=== PATIENT | female | born 1950 | race Caucasian/White ===

== ENCOUNTER 2019-12-30 05:00 | Observation (INO) ==
--- NOTE | 2019-12-26 10:44 | Anesthesiology Consultation ---
Date of Service December 26, 2019 Assessment & Plan (1) Encounter for pre-operative examination: - Check BSG AM DOS Chart Review Chart Review: Acceptable Risk for Surgery and Patient NOT seen in Pre Admission Testing History Surgery Operation Date: 12/30/19 08:50 Proposed Procedures p Ventral Hernia Repair - Justo Meier MD Height/Weight Height: 5 ft 2 in Weight: 81.647 kg Allergies Allergy/AdvReac Type Severity Reaction Status Date / Time No Known Allergies Allergy Verified 12/26/19 09:20 Medications Home Medications Medication Instructions Recorded Confirmed Last Taken aspirin [Aspirin Low Dose] 81 mg PO QAM 12/26/19 12/26/19 Unknown calcium carbonate-vitamin D3 1 tab PO QAM 12/26/19 12/26/19 Unknown [Caltrate 600 plus D] cyanocobalamin (vitamin B-12) 2,000 mcg PO QPM 12/26/19 12/26/19 Unknown [Vitamin B-12] famotidine [Pepcid AC] 10 mg PO DAILY PRN 12/26/19 12/26/19 Unknown hydrochlorothiazide 12.5 mg PO QAM 12/26/19 12/26/19 Unknown lisinopril 40 mg PO QAM 12/26/19 12/26/19 Unknown loperamide 2 mg PO Q3H PRN 12/26/19 12/26/19 Unknown metformin 850 mg PO TIDM 12/26/19 12/26/19 Unknown utrbxdok-qxc-rums-FA-lutein 1 tab PO QAM 12/26/19 12/26/19 Unknown [Centrum Silver Women] nateglinide [Starlix] 120 mg PO TIDM 12/26/19 12/26/19 Unknown pravastatin 80 mg PO HS 12/26/19 12/26/19 Unknown Past Medical History Medical History Diabetes mellitus, type 2 NIDDM History of basal cell cancer Hypertension Osteoarthritis Sleep apnea no further details per RN phone interview, ?device Past Surgical History Surgical History History of partial hysterectomy Hx laparoscopic cholecystectomy Hx of colonoscopy Hx of rotator cuff surgery RIGHT Hx of tonsillectomy Social History Smoking Status: Never smoker Do You Dip or Chew Tobacco: No Hx Alcohol Use: No Hx Substance Use: No Testing Laboratory Results 12/20/19 WBC 8.21 H/H 12.9/40.5 PLATELETS 164 SODIUM 141 POTASSIUM 4.1 CHLORIDE 102 CO2 24 BUN 15 CREATININE 0.6 GLUCOSE 149 Electrocardiogram Date: 12/20/19 NSR at 76bpm. RBBB.
[2019-12-30] MEDS ORDERED: LR 15ML/HR IV SCH (06:00)
[2019-12-30] MEDS ORDERED: CEFAZOLIN 2000MG 2,000 MG/15 ML SYR IV SCH (06:00)
--- NOTE | 2019-12-30 06:35 | History & Physical Bridge Note ---
Date of Service December 30, 2019 History & Physical Bridge Note I have examined the patient, reviewed the History & Physical and in the interval since the performance of the History & Physical I have noted the following changes of clinical significance: no changes noted
[2019-12-30] MEDS ORDERED: ACETAMINOPHEN 1000 MG/100 ML IV IV ONE (06:39)
[2019-12-30] MEDS ORDERED: ONDANSETRON INJ 2 MG/ML 2 ML VIAL ONE ×2 (06:40→09:20)
[2019-12-30] MEDS ORDERED: LARYING-O-JET KIT (LTA) ONE (06:40)
[2019-12-30] MEDS ORDERED: PROPOFOL IV EMULSION 10 MG/ML 20 ML VIAL IV ONE (06:40)
[2019-12-30] MEDS ORDERED: LIDOCAINE HCL 2% 2 ML VIAL/AMP(20MG/ML) INFIL ONE (06:40)
[2019-12-30] MEDS ORDERED: fentaNYL citrate 100 MCG/2 ML VIAL ONE (06:40)
[2019-12-30] MEDS ORDERED: BUPIVACAINE 0.5 % 5 MG/1 ML MPF 30ML VIAL ONE (06:46)
[2019-12-30] MEDS ORDERED: LIDOCAINE HCL 1% 20 ML VIAL ONE (06:46)
[2019-12-30] MEDS ORDERED: CEFAZOLIN 250 MG/ML 1 GM VIAL ONE (06:52)
[2019-12-30] MEDS ORDERED: PROMETHAZINE HCL 6.25 MG in SODIUM CHLORIDE 0.9% 50 ML IV PRN (06:53)
[2019-12-30] MEDS ORDERED: ATROPINE SULFATE 0.1 MG/ML 10ML SYR IV PRN (06:53)
[2019-12-30] MEDS ORDERED: ONDANSETRON INJ 2 MG/ML 2 ML VIAL IV PRN ×2 (06:53→11:06)
[2019-12-30] MEDS ORDERED: fentaNYL citrate 100 MCG/2 ML VIAL IV PRN (06:53)
[2019-12-30] MEDS ORDERED: ePHEDrine sulfate 50 MG/ML AMP IV PRN (06:53)
[2019-12-30] MEDS ORDERED: PHENYLEPHRINE 100MCG/ML 5ML SYR ONE (07:21)
[2019-12-30] MEDS ORDERED: HYDROmorphone INJ 2 MG/ML SYR/VIAL ONE (07:45)
[2019-12-30] MEDS ORDERED: SODIUM CHLORIDE 0.9% INJ 10 ML VIAL ONE (07:49)
[2019-12-30] MEDS ORDERED: ePHEDrine sulfate 50 MG/ML SYR ONE (09:01)
--- NOTE | 2019-12-30 09:50 | Post Operative Brief Note ---
Immediate Post Op Note v1 Date of Surgery December 30, 2019 Pre & Post Diagnosis Operation Date: 12/30/19 07:00 Pre-Op Diagnosis: Ventral Hernia without obstruction Post-Op Diagnosis: Ventral Hernia without obstruction I identified the patient and participated in the time-out.: Yes Procedure Operation Date: 12/30/19 07:00 Actual Procedures p Ventral Hernia Repair(Not Applicable) - Justo Meier MD Surgeon Justo Meier MD Right Of Way Manager None Estimated Blood Loss 25 Findings Consistent with Post-Op Diagnosis Drains Alaniz Catheter and Rick-Patton Drain (10flat, subcutaneous space) Anesthesia Type General
[2019-12-30] MEDS ORDERED: NEOSTIGMINE METHYLSULFATE 5 MG/5 ML SYR ONE (10:00)
[2019-12-30] MEDS ORDERED: GLYCOPYRROLATE 0.2 MG/ML VIAL ONE (10:00)
--- NOTE | 2019-12-30 10:34 | Anesthesiology Progress Note ---
Date of Service December 30, 2019 Anesthesia Post Procedure Vital Signs Vital Signs: Temp Pulse Pulse Resp BP Pulse Ox 12/30/19 10:30 91 H 14 179/71 H 93 12/30/19 10:20 92 H 12 175/66 H 94 12/30/19 10:10 101 H 14 194/90 H 95 12/30/19 10:00 88 13 151/63 H 93 12/30/19 09:53 36.2 C L 100 H 14 164/98 H 96 12/30/19 05:48 37.4 C 86 18 174/79 H 96 Pain Intensity Abdomen: Pain Intensity: 0 Transfer of Care Handoff Completed per policy Notes Mental Status: alert / awake / arousable Patient Amnestic to Procedure: Yes Nausea / Vomiting: adequately controlled Pain: adequately controlled Airway Patency, RR, SpO2: stable & adequate BP & HR: stable & adequate Hydration State: stable & adequate Anesthetic Complications: no major complications apparent
[2019-12-30] MEDS ORDERED: SODIUM CHLORIDE 0.9% 1000ML 1,000 ML IV SCH (11:06)
[2019-12-30] MEDS ORDERED: FAMOTIDINE 10 MG TABLET PO PRN (11:06)
[2019-12-30] MEDS ORDERED: MoRPHine SULFATE 4 MG/ML 1 ML CARP\\VIAL IV PRN (11:06)
[2019-12-30] MEDS ORDERED: LOPERAMIDE HCL 2 MG CAP PO PRN (11:06)
[2019-12-30] MEDS ORDERED: PHARMACY GLYCEMIC MGMT CONSULT PRN (11:44)
--- NOTE | 2019-12-30 11:56 | Pharmacy Report ---
Glycemic Control Consultation - Date of Service December 30, 2019 - Scope Scope: Glycemic Pharmacist consulted by Dr Meier on 12/30/2019 for glycemic control and to write orders per [facility] inpatient glycemic control protocol - Objective Weight: 84.3 kg Accuchecks BSG (last 24hrs): 12/30/19 12/30/19 05:37 09:57 POC Glucose 177 H 207 H - Recent Pertinent Medications Outpatient Anti-diabetic Regimen: * metformin 850 mg PO TID plus Starlix 120 mg PO TID. Risk Factors for Insulin Resistance: * Recent Surgery: POD 0 for hernia surgery * Diet: T2DM - Assessment & Plan Assessment & Plan: ASSESSMENT: * Ms Escobedo is a 69 y/o F on 2 anti-diabetic medications who presents for hernia surgery. BSG on presentation was 177 mg/dL. Received no steroids. * Utilize 0.2 units/kg of Lantus for one time dose. Utilize slightly tighter than weight-based stress of 2 for Novolog. * Ordered HbA1C. * Pt is maintained on oral antidiabetic agents as an outpatient * Oral agents are not recommended for inpatient use d/t drug interactions, changing PO intake, and difficulty titrating for acute hyper/hypoglycemia. ADA recommends re-initiating outpatient oral agents 1-2 days prior to discharge if/when appropriate if they were held on admission. * Will hold oral agents for admission and utilize SQ basal bolus insulin regimen which is the recommended regimen for inpatient glycemic control. * Will initiate weight based insulin dosing for insulin sania patient and titrate based on BSG trends. PLAN FOR INPATIENT GLYCEMIC CONTROL: * Holding outpatient oral diabetes medications * Basal insulin * Lantus 20 units SQ x 1 * Bolus insulin * NovoLog per scale ACHS or Q6hrs while NPO * Goal Range: Low 110 mg/dL - High 140 mg/dL * Correction Factor: 25 mg/dL/unit * Nutritional / Prandial insulin per carb ratio of 1 unit per 8 grams CHO consumed * Please note that the plan above was derived based on current level of insulin resistance and hospital stress. These recommendations are appropriate for inpatient admission only. Plan of care upon discharge will need to be reassessed to avoid potential outpatient hypo/hyperglycemia. Thank you.
[2019-12-30] MEDS ORDERED: DEXTROSE 50% 50 ML SYRINGE IV PRN (12:00)
[2019-12-30] MEDS ORDERED: GLUCAGON FOR INJ 1 MG VIAL IM PRN (12:00)
[2019-12-30] MEDS ORDERED: GLUCOSE 40% GEL 15 GM TUBE PO PRN (12:00)
[2019-12-30] MEDS ORDERED: METFORMIN HCL 850 MG TAB PO SCH (12:00)
[2019-12-30] MEDS ORDERED: CARBOHYDRATES FOR HYPOGLYCEMIA PO PRN (12:00)
[2019-12-30] MEDS ORDERED: NATEGLINIDE 120 MG PO SCH (12:00)
[2019-12-30] MEDS ORDERED: GLUCOSE 10 TABS/TUBE PO PRN (12:00)
[2019-12-30] MEDS ORDERED: LANTUS PER UNIT CHARGE SQ ONE (12:00)
[2019-12-30] MEDS: INSULIN ASPART 100 UNITS/ML 3 ML PEN SC SCH ×3 (12:36→21:06)
[2019-12-30] MEDS: PRAVASTATIN SOD 40 MG TAB PO SCH (20:58)
[2019-12-30] MEDS: CYANOCOBALAMIN 500 MCG TABLET (VITAMIN B-12) PO SCH (20:59)
[2019-12-30] MEDS: OXYCODONE/ACETAMINOPHEN 5mg/325mg TAB PO PRN (21:01)
--- NOTE | 2019-12-31 04:34 | Operative Report ---
DATE OF OPERATION: 12/30/2019 PREOPERATIVE DIAGNOSIS: Ventral hernia. POSTOPERATIVE DIAGNOSIS: Ventral hernia. PROCEDURE: Repair of ventral hernia. SURGEON: Justo Meier MD. CAT WAGON OPERATOR: Kenia Langston PA-C. FINDINGS: The patient had 2 ventral hernias with a skin bridge measuring about a centimeter between that was divided in order to create one hernia defect, which then measured 7 x 6 cm. The hernia sac measured 15 cm in diameter and contained a significant portion of the omentum as well as the transverse colon. These were adherent to the inner portion of the hernia sac. The colon appeared healthy. TECHNIQUE: The patient was given a general anesthetic and the area was prepped and draped in the usual sterile fashion. The hernia had been previously marked. Vertical incision was made through the scar from her previous incision. This had to be extended superiorly. It was carried down through the subcutaneous tissue until the hernia sac could be identified. The hernia sac was primarily to the right of the vertical midline defect. It had mushroomed and was adherent to the anterior surface of the fascia around the entire hernia defect, but primarily towards the right. This allowed me to then elevate the hernia sac on the left and dissect it away from the surrounding connective tissue using blunt cautery and sharp dissection where appropriate until I could identify the fascia. I then rolled the hernia sac off the anterior surface of the fascia until I was able to identify the edge of the fascial defect. I then dissected the hernia sac away from the overlying skin towards the right and then was able to roll that towards the left side and dissect significant connective tissue adhesion down towards the fascia. I then worked inferiorly and was able to dissect right down to the hernia sac itself. I was then able to establish bluntly a plane along the hernia sac towards the right side and divided those attachments using blunt and cautery dissection where appropriate, which allowed me then to completely roll the sac medially allowing me to identify the attachments to the anterior surface of the fascia on that side. These attachments were divided bluntly and with cautery until I was able to roll it over to the edge of the fascia there. I then had to work towards the superior side and it was at that point that I identified the second defect. I was able to establish a plane bluntly underneath the fascia between the 2 defects and opened that creating one defect. There was omentum up within the more superior smaller hernia sac and this was dissected away. I then opened the hernia sac and tried to reduce the omentum, but there were lobulations and small pockets to the sac. I had to open some of these in order to free the omentum. The colon was adherent in one area. This was dissected away without causing enterotomy or rent in the serosa. Once that was completely freed, I was then able to concentrate on dissecting the omentum away from the inner surface of the hernia sac, but that was accomplished until it was all completely freed. That required a significant amount of time with careful dissection. Once it was all freed, I was then able to reduce the colon and the omentum back into the abdominal cavity. I then worked towards the left side and depressed the peritoneum and was able to establish a preperitoneal space towards the left with ease. Once I got beyond the incision for about a centimeter, I was able to perform that bluntly and then worked inferiorly and superiorly. The right-sided dissection was a little more difficult as the peritoneum was much more thin. I then opened the posterior rectus sheath superiorly and peeled it down and worked superior to inferior till I reached the dissection of the peritoneum away inferiorly. That created a pocket anterior to the peritoneum for a distance of 5-6 cm around the entire circumference. I then used the hernia sac to close the peritoneum using a running 2-0 Vicryl locked sutures until it was completely freed. There was no bowel exposed. A 15 x 15 piece of mesh was then fashioned and placed in the preperitoneal retrofascial space. It was secured to the undersurface of the fascia using 0 PDS horizontal mattress sutures. The fascia was then closed in the midline with [id number] sutures of #1 PDS. The area was inspected for bleeding and none was seen. Because of the large size of the sac in the subcutaneous tissue, I felt that this was at risk for developing a seroma, so a separate stab incision was made towards the right side inferior to the incision through which a 10 mm flat Rick-Patton was brought. It was placed in the subcutaneous tissue and secured at the exit site of the skin with a 3-0 nylon. The skin was then closed with bhargav. The skin was anesthetized with 0.5% Marcaine. The estimated blood loss was 25 mL. Sponge, needle and instrument counts were correct prior to closure. A dressing was placed. The patient was transferred to recovery. I attest to the content of the Intraoperative Record and any orders documented therein. Any exception s are noted below.
[2019-12-31] MEDS: OXYCODONE/ACETAMINOPHEN 5mg/325mg TAB PO PRN ×3 (06:00→21:22)
--- NOTE | 2019-12-31 06:52 | Surgery Progress Note ---
Date of Service December 31, 2019 Assessment & Plan (1) Ventral hernia: Postoperative day #1 status post repair of ventral hernia Encouraged ambulation Encourage p.o. Continue pain management Social service evaluation for home nursing care Subjective Postoperative day 1 status post ventral hernia Having mild nausea Pain is relieved although requiring narcotic analgesics Sitting in chair Did not take p.o. well but did tolerate liquids MAHENDRA put out 150 cc of serosanguineous Physical Exam Gastrointestinal (Abdomen): Inspection/Auscultation: normal bowel sounds and + abdominal surgical incision (Small amount of drainage on the dressing); abdomen not distended Percussion/Palpation: abdomen soft; abdomen nontender Results & Data Vital Signs (Past 12 Hours) Vital Signs Temp Pulse Resp BP Pulse Ox 12/31/19 03:58 37.2 C 105 H 15 131/71 91 12/30/19 23:30 37.5 C 98 H 15 130/72 93 12/30/19 20:00 36.8 C 88 16 132/74 98
[2019-12-31 07:22] LABS: Estimated Average Glucose 180 mg/dl; Hemoglobin A1C 7.9 % (4.5-5.6)
--- NOTE | 2019-12-31 07:36 | Anesthesiology Progress Note ---
Date of Service December 31, 2019 Anesthesia Post Procedure Vital Signs Vital Signs: Temp Pulse Pulse Resp BP Pulse Ox 12/31/19 07:17 37 C 99 H 16 138/75 92 12/31/19 03:58 37.2 C 105 H 15 131/71 91 12/30/19 23:30 37.5 C 98 H 15 130/72 93 12/30/19 20:00 36.8 C 88 16 132/74 98 12/30/19 16:52 36.8 C 89 16 135/76 99 12/30/19 14:12 36.8 C 92 H 18 136/74 96 12/30/19 13:13 36.7 C 85 19 129/74 95 12/30/19 12:15 90 16 138/76 95 12/30/19 11:32 36.6 C 87 19 130/75 95 12/30/19 10:55 36.5 C 102 H 18 176/75 H 94 12/30/19 10:40 36.5 C 88 14 164/63 H 93 12/30/19 10:30 91 H 14 179/71 H 93 12/30/19 10:20 92 H 12 175/66 H 94 12/30/19 10:10 101 H 14 194/90 H 95 12/30/19 10:00 88 13 151/63 H 93 12/30/19 09:53 36.2 C L 100 H 14 164/98 H 96 Pain Intensity Abdomen: Pain Intensity: 2 Notes Mental Status: alert / awake / arousable and participated in evaluation Nausea / Vomiting: adequately controlled Pain: adequately controlled Airway Patency, RR, SpO2: stable & adequate BP & HR: stable & adequate Hydration State: stable & adequate Anesthetic Complications: Pt Satisfied with anesthetic care
--- NOTE | 2019-12-31 07:50 | Anesthesiology Progress Note ---
Date of Service December 31, 2019 Anesthesia Post Procedure Vital Signs Vital Signs: Temp Pulse Pulse Resp BP Pulse Ox 12/31/19 07:17 37 C 99 H 16 138/75 92 12/31/19 03:58 37.2 C 105 H 15 131/71 91 12/30/19 23:30 37.5 C 98 H 15 130/72 93 12/30/19 20:00 36.8 C 88 16 132/74 98 12/30/19 16:52 36.8 C 89 16 135/76 99 12/30/19 14:12 36.8 C 92 H 18 136/74 96 12/30/19 13:13 36.7 C 85 19 129/74 95 12/30/19 12:15 90 16 138/76 95 12/30/19 11:32 36.6 C 87 19 130/75 95 12/30/19 10:55 36.5 C 102 H 18 176/75 H 94 12/30/19 10:40 36.5 C 88 14 164/63 H 93 12/30/19 10:30 91 H 14 179/71 H 93 12/30/19 10:20 92 H 12 175/66 H 94 12/30/19 10:10 101 H 14 194/90 H 95 12/30/19 10:00 88 13 151/63 H 93 12/30/19 09:53 36.2 C L 100 H 14 164/98 H 96 Pain Intensity Abdomen: Pain Intensity: 2 Notes Mental Status: alert / awake / arousable and participated in evaluation Patient Amnestic to Procedure: Yes Nausea / Vomiting: adequately controlled Pain: adequately controlled Airway Patency, RR, SpO2: stable & adequate BP & HR: stable & adequate Hydration State: stable & adequate Anesthetic Complications: no major complications apparent and Pt Satisfied with anesthetic care
[2019-12-31] MEDS: CALCIUM 600MG + VIT D 400 IU TAB PO SCH (08:43)
[2019-12-31] MEDS: CEROVITE ADV FORMULA TAB PO SCH (08:44)
[2019-12-31] MEDS: ASPIRIN 81 MG ECTAB PO SCH (08:48)
[2019-12-31] MEDS: hydroCHLOROthiazide 25 MG TAB PO SCH (08:49)
[2019-12-31] MEDS: lisinopriL 40 MG TAB PO SCH (08:50)
[2019-12-31] MEDS: INSULIN ASPART 100 UNITS/ML 3 ML PEN SC SCH ×4 (08:55→21:19)
[2019-12-31] MEDS ORDERED: LANTUS PER UNIT CHARGE SQ ONE (09:00)
--- NOTE | 2019-12-31 09:51 | Pharmacy Report ---
Glycemic Control Progress Note - Date of Service December 31, 2019 - Scope Glycemic Pharmacist consulted for glycemic control to write orders per [facility] inpatient glycemic control protocol. - Objective Accuchecks BSG(last 24 hours):: 12/30/19 12/30/19 12/30/19 09:57 11:49 17:03 POC Glucose 207 H 234 H 205 H 12/30/19 12/31/19 20:32 08:11 POC Glucose 183 H 191 H HbA1c:: Hemoglobin A1c 7.9 % (4.5-5.6) H 12/31/19 06:07 - Recent Pertinent Medications The patient is currently receiving: * Basal insulin: Lantus 20 units x 1 * Correctional Insulin: Novolog Correction per scale ACHS Goal Range: Low 110 mg/dL - High 140 mg/dL Correction Factor: 25 mg/dL/unit * Prandial insulin: Per carb ratio of 1 unit per 8 grams CHO consumed - Outpatient Anti-Diabetic Meds metformin 850 mg PO TID plus Starlix 120 mg PO TIDM - Assessment & Plan ASSESSMENT: * See progress note from 12/30/2019 for more background info, in short: * Pt receiving SQ basal bolus insulin regimen for hyperglycemia secondary to baseline DM (outpatient regimen on hold). POD 1 for hernia repair. * Patient is currently receiving an average of 35 units of insulin per day * 20 units of basal insulin * 15 units of prandial/correctional insulin * BSGs ranging 177 - 234 mg/dl over the past 24hrs * Changes needed to insulin regimen: * AM Fasting BSG = 191 mg/dl. This is above goal range for patient based on inpatient targets and co-morbidities. Therefore Basal insulin will be increased by 20%. Utilizing caution since patient is not eating much. * Post-prandial BSGs are trending downwards. Continue current regimen. * Total daily dose is currently unknown. Will continue to monitor. PLAN FOR INPATIENT GLYCEMIC CONTROL: * Increasing Lantus/NPH to 25 units SQ daily * Continuing correction factor of 25 mg/dl/unit * Continuing carb ratio of 1 unit per 8 grams CHO consumed * Continuing goal range of Low 110 mg/dL - High 140 mg/dL RECOMMENDATIONS FOR DISCHARGE: * Patient's HbA1C is not at goal for her age and co-morbidities. * Recommend working with PCP to start Lantus. At that point may consider d/c of Starlix to prevent hypoglycemia. Thank you.
[2019-12-31] MEDS ORDERED: SODIUM CHLORIDE 0.9% 500 ML IV SCH (16:00)
[2019-12-31] MEDS: SODIUM CHLORIDE 0.9% 1000ML 1,000 ML IV SCH (17:26)
[2019-12-31] MEDS: CYANOCOBALAMIN 500 MCG TABLET (VITAMIN B-12) PO SCH (21:21)
[2019-12-31] MEDS: PRAVASTATIN SOD 40 MG TAB PO SCH (21:22)
[2020-01-01] MEDS: SODIUM CHLORIDE 0.9% 1000ML 1,000 ML IV SCH (03:21)
--- NOTE | 2020-01-01 08:21 | Surgery Progress Note ---
Date of Service January 01, 2020 Assessment & Plan (1) Ventral hernia: Postoperative day #2 status post repair of large ventral hernia Doing very well Active peristalsis Can discharge to home Discussed activity restrictions According to social service note, [facility] will be seeing her daily for drain management Already has follow-up appointment scheduled Subjective Postoperative day #2 status post repair of large ventral hernia Feels much better today Nausea has resolved Eating a regular breakfast Appetite has not completely returned No flatus or bowel movement as yet Urine output has improved with IV fluids but is now drinking Physical Exam Gastrointestinal (Abdomen): Inspection/Auscultation: normal bowel sounds and + abdominal surgical incision (Clean, dry and intact, no erythema); abdomen not distended Percussion/Palpation: + abdomen tender (Incisional only) and abdomen soft; no abdominal mass Results & Data Vital Signs (Past 12 Hours) Vital Signs Temp Pulse Resp BP Pulse Ox 01/01/20 07:11 37.1 C 98 H 16 118/70 90 12/31/19 23:32 36.9 C 86 15 97/58 L 91
[2020-01-01] MEDS: CEROVITE ADV FORMULA TAB PO SCH (08:25)
[2020-01-01] MEDS: CALCIUM 600MG + VIT D 400 IU TAB PO SCH (08:25)
[2020-01-01] MEDS: ASPIRIN 81 MG ECTAB PO SCH (08:26)
[2020-01-01] MEDS: hydroCHLOROthiazide 25 MG TAB PO SCH (08:26)
[2020-01-01] MEDS: lisinopriL 40 MG TAB PO SCH (08:26)
[2020-01-01] MEDS: INSULIN ASPART 100 UNITS/ML 3 ML PEN SC SCH (08:29)
[2020-01-01] MEDS ORDERED: LANTUS PER UNIT CHARGE SQ ONE (08:45)
--- NOTE | 2020-01-03 11:57 | Discharge Summary ---
Date of Service January 03, 2020 Admission HPI Per Admitting Provider Meenakshi presented to [facility] for elective outpatient ventral hernia repair with possible mesh by Dr. Meier. Principal Diagnosis Large Ventral hernia Discharge Data Allergies Allergy/AdvReac Type Severity Reaction Status Date / Time erythromycin base Allergy Verified 12/30/19 05:43 Consultations 12/31/19 06:55 Consult Case Management - Discharge Planning Routine Procedures Performed Operation Date: 12/30/19 07:00 Actual Procedures p Ventral Hernia Repair with mesh(Not Applicable) - Justo Meier MD Hospital Course (1) Ventral hernia: Patient was taken to operating room for open ventral hernia repair with possible mesh. The hernia was very large and contained omentem and large bowel. No bowel obstruction or ischemia was present. After freeing the hernia sac from the fascia, the omentum and large bowel were able to be reduced into the abdominal cavity. No bowel resection required. Patient tolerated procedure well however it was felt to keep patient in hospital for postoperative care and pain management given extent of hernia and prolonged procedure. POD # 1 vitals stable, afebrile. Had some nausea and was tolerating liquids but not much more PO intake. Pain controlled with narcotic pain medication. She was OOB sitting in chair. shared services manager consulted for home health. MAHENDRA drain had 150 cc serosanguineous output. POD # 2 vitals stable, afebrile, pain controlled, tolerating regular diet. Patient was doing well. Home health care was set up for patient to help with surgical drain. Patient was discharged home on POD # 2 in stable condition. Total Time Total Time Spent Total Time Spent (In Minutes): 20 Total Time Includes: Examination of the Patient, Discharge Planning and Medication Reconciliation Discharge Plan Discharge Items Patient Disposition: Home - Home Health Services Reason For Visit: VENTRAL HERNIA WO OBSTRUCTION OR GANGRENE Discharge Diagnosis: Same Activity: As commented below Non-emergency contact: Surgeon Call non-emergency contact if: your temperature is above 101.5, your wound has increased redness and your wound has increased drainage Follow-up/Referrals: Justo Meier MD [Physician] - 01/17/20 2:05 pm (Follow up appt with Dr. Meier is on Wednesday 01/17 at 205pm. Please arrive 15 minutes prior to appt time. If this date and time does not fit your schedule please call [phone]. [address] Meg Stone M.D. [Primary Care Provider] - 01/14/20 12:45 pm (Follow up appt with Dr. Stone in on Sunday 01/14 @ [id number]. Please arrive 15 minutes prior to appt time. If this appt time does not fit your schedule please call [phone]. [facility] ) Diet: Carb Consistent or DM2 Addtl Attending Provider Instructions: ACTIVITY RECOMMENDATIONS: * Walk as much as possible. * No heavy lifting (>10 lbs.) for 6 weeks. SPECIAL CARE INSTRUCTIONS: * Home health to assist with drain * May shower after drain removed. * Call the surgeon's office with any questions or concerns - (ex. temperature higher than 101 degrees F, excessive bleeding or pain). MEDICATIONS: Resume previous medications unless instructed otherwise by your surgeon. * Ibuprofen 600 mg every 6 hours with food if allowed to take Ibuprofen * Percocet 1 every 4 hours, as needed for pain FOLLOW UP VISIT: If not already scheduled, please call the office to schedule a two week follow- up appointment. Office number Pending Studies at Discharge: No Stand-Alone Forms: [facility], Opioid Pain Management, Smoking Cessation Medications and DC Order Prescriptions: New oxycodone-acetaminophen [Percocet] 5-325 mg Tablet 1 tab PO Q4H PRN (Reason: pain) Qty: 5 RF: 0 Continued nateglinide [Starlix] 120 mg Tablet 120 mg PO TIDM RF: 0 metformin 850 mg Tablet 850 mg PO TIDM RF: 0 aspirin [Aspirin Low Dose] 81 mg Tablet,Delayed Release (Dr/Ec) 81 mg PO QAM RF: 0 pravastatin 80 mg Tablet 80 mg PO HS RF: 0 cyanocobalamin (vitamin B-12) [Vitamin B-12] 2,000 mcg Tablet Extended Release 2,000 mcg PO QPM RF: 0 lisinopril 40 mg Tablet 40 mg PO QAM RF: 0 hydrochlorothiazide 12.5 mg Tablet 12.5 mg PO QAM RF: 0 famotidine [Pepcid AC] 10 mg Tablet 10 mg PO DAILY PRN (Reason: GERD) RF: 0 loperamide [Imodium A-D] 2 mg Capsule 2 mg PO Q3H PRN (Reason: Diarrhea) RF: 0 Centrum Silver Women 8 mg iron-400 mcg-300 mcg Tablet 1 tab PO QAM RF: 0 Caltrate 600 plus D 600 mg (1,500 mg)-800 unit Tablet,Chewable 1 tab PO QAM RF: 0 Discharge Orders: Discharge Order (Routine); Ordered 01/01/20 Ordered By: Justo Gaytan/Other Patient Handouts: Hyperglycemia, Hypoglycemia, Diabetes Manage A1C Test Admission Data Admit Date/Time: 12/30/19 10:17 Attending Provider: Justo Meier Admit Provider: Justo Meier Primary Care Provider: Meg Stone Other Providers: [facility],Home Health ; [place],Home Care Other Interventions: Discharge Summary Assessment (RN) Last Done: 01/01/20 09:08 DC Date/Time DO NOT enter until pt leaves facility: 01/01/20 11:47
== END 2020-01-01 11:47 | disposition home health service (06) ==
LOC: ASU 05:00 → 3W 05:00